=== PATIENT | male | born 2000 | race Caucasian/White ===

== ENCOUNTER 2022-06-12 13:09 | Emergency (ER) | payer OTHER ==
[2022-06-12 13:36] VITALS: BP 107/63; PULSE 71; RESP 18; TEMP 98.2; BMI 18.6
[2022-06-12 15:49] LABS: SYPHILIS W/ RPR CONF NON-REACTIVE (NONREACTIVE)
[2022-06-12 16:18] LABS: HIV INTERPRETATION NEGATIVE (NEGATIVE)
== END 2022-06-12 14:40 | disposition home or self-care (01) ==
LOC: JERFT 13:09
DX: Z20.2 Contact with and (suspected) exposure to infections with a predominantly sexual mode of transmission (principal)
CPT/HCPCS: 36415; 86780; 87389; 87491; 87591; 99283-25